=== PATIENT | male | born 1970 | race African-American/Black ===

== ENCOUNTER 2018-09-09 17:46 | Emergency (ER) | payer MEDICAID ==
[~2018-09-09] VITALS: Ht 177.8 cm; Wt 99.0 kg
[2018-09-09] MEDS ORDERED: IBUPROFEN 600MG TABLET PO ONE (22:45)
[2018-09-09 22:56] VITALS: BP 136/95
== END 2018-09-09 22:57 | disposition home or self-care (01) ==
LOC: ER 17:46
DX: S02.5XXA Fracture of tooth (traumatic), initial encounter for closed fracture (principal); X58.XXXA Exposure to other specified factors, initial encounter; Y93.89 Activity, other specified; Y92.89 Other specified places as the place of occurrence of the external cause; Y99.8 Other external cause status
CPT/HCPCS: 99282